=== PATIENT | male | born 1970 | race Caucasian/White ===

== ENCOUNTER → 2020-08-23 15:41 | Outpatient (BNVA) | payer OTHER, SELFPAY | PROVIDERS: PCP Internal Medicine; Visit Provider Urology ==

== ENCOUNTER 2020-11-08 11:36 | Outpatient (REF) | payer BC, SELFPAY ==
--- NOTE | ~2020-11-08 | XR_ITS ---
EXAMINATION: CHEST AND LEFT SHOULDER X-RAY CLINICAL INFORMATION: Chest and left shoulder pain COMPARISON: None TECHNIQUE: 2 views of the chest and 4 views of the left shoulder FINDINGS: Chest: The cardiac and mediastinal contours are normal. The lungs are clear. There is no pleural effusion or pneumothorax. There is mild curvature of the midthoracic spine to the right and degenerative change. Left shoulder: Bone alignment is normal. No fracture or dislocation is seen. The glenohumeral joint is normal. There is mild arthritis at the acromioclavicular joint. Soft tissues are unremarkable. XR/XR chest 2V IMPRESSION: Chest x-ray: Unremarkable exam Left shoulder: Mild arthritis at the acromioclavicular joint.
--- NOTE | ~2020-11-08 | XR_ITS ---
EXAMINATION: CHEST AND LEFT SHOULDER X-RAY CLINICAL INFORMATION: Chest and left shoulder pain COMPARISON: None TECHNIQUE: 2 views of the chest and 4 views of the left shoulder FINDINGS: Chest: The cardiac and mediastinal contours are normal. The lungs are clear. There is no pleural effusion or pneumothorax. There is mild curvature of the midthoracic spine to the right and degenerative change. Left shoulder: Bone alignment is normal. No fracture or dislocation is seen. The glenohumeral joint is normal. There is mild arthritis at the acromioclavicular joint. Soft tissues are unremarkable. XR/XR shoulder LT min 2V IMPRESSION: Chest x-ray: Unremarkable exam Left shoulder: Mild arthritis at the acromioclavicular joint.
[2020-11-08 15:02] LABS: Alanine Aminotransferase 22 U/L (0-40); Albumin Level 4.7 g/dL (3.5-5.0); Alkaline Phosphatase 74 U/L (39-117); Anion Gap 14 (12-20); Aspartate Amino Transferase 22 U/L (5-37); Bilirubin Total 0.7 mg/dL (0.0-1.0); Blood Urea Nitrogen 12 mg/dL (9-16); Calcium 9.3 mg/dL (8.4-10.2); Carbon Dioxide 30 mmol/L (22-29); Chloride 103 mmol/L (96-108); Cholesterol 199 mg/dL; Estimated Glomerular Filt Rate > 60; Glucose Fasting 85 mg/dL (60-99); HDL Cholesterol 69 mg/dL; LDL Cholesterol Calculated 111 mg/dl; Potassium 4.1 mmol/L (3.3-5.1); Sodium 143 mmol/L (135-145); Total Protein 7.9 g/dL (6.5-8.0); Triglycerides 99 mg/dL
== END 2020-11-08 11:37 | disposition home or self-care (01) ==
LOC: HO.HMGCLDS 11:36
PROVIDERS: PCP Internal Medicine; Visit Provider Internal Medicine
DX: Z00.00 Encounter for general adult medical examination without abnormal findings (principal); R07.9 Chest pain, unspecified; M25.512 Pain in left shoulder
CPT/HCPCS: 36415; 71046; 73030; 80053; 80061

== ENCOUNTER → 2020-11-11 07:57 | Outpatient (REF) | payer BC, SELFPAY ==
--- NOTE | 2020-11-11 08:01 | CA_ITS ---
Acquisition Time: 2020-11-11 08:29:56 Total Exercise Time: 00:08:01 Test Indications: Chest Pain Medications: SEE CHART Protocol: RICK Max HR: 155 BPM 90% of Pred: 172 BPM Max BP: 146/076 mmHG Max Work Load: 10.1 METS Exercise stress test using Rick protocol total of 8 min 1 sec, METS 10.10, and TAPHR up to 91 %. Pt tolerated well. Chest pressure at the end of exercise. EKG with mild upsloping ST depressions, Given his sx, and EKG tracings we will request further testing. Normotensive response to exercise. Test reviewed with Dr. Lundberg called PCP and requested stress nuclear Referred By: Ana Luisa York Overread By: Leighann Angel NP
== END ==
LOC: HO.CARD 07:57
PROVIDERS: Visit Provider Internal Medicine
DX: Z00.00 Encounter for general adult medical examination without abnormal findings (principal); R07.9 Chest pain, unspecified
CPT/HCPCS: 93016; 93017; 93018

== ENCOUNTER → 2020-12-08 10:01 | Outpatient (REF) | payer BC, SELFPAY ==
--- NOTE | ~2020-12-08 | NM_ITS ---
EXERCISE MYOCARDIAL PERFUSION STUDY INDICATION: Heartburn, upper chest pain, assess for coronary disease and ischemia TECHNIQUE: The patient was brought in for an exercise perfusion study on 12/08/2020. Patient performed exercise as per Mian protocol and was injected 30 mCi of sestamibi once target heart rate was achieved. Images were obtained using the SPECT gamma camera interlaced with the gating device. Images were obtained in supine position. Resting perfusion study was performed on 12/09/2020. Patient was administered 30 mCi of sestamibi intravenously at rest. Images were then obtained in supine position. Total DLP 80mGy-cm. Images were processed with the software and compared side to side in short axis, horizontal long axis and vertical long axis views. FINDINGS: Raw images were reviewed. The stress perfusion study showed diminished tracer uptake along the basal to mid inferior wall. With CT attenuation correction, there is significant improvement suggesting diaphragmatic attenuation artifact. The gated study shows normal LV systolic function with calculated LVEF of 70%. LV cavity is normal in size. The gated study shows normal wall thickening and contraction of segments. Resting study shows diminished tracer uptake along the basal to mid inferior wall but with improvement during CT attenuation correction. Gating at rest reveals normal wall motion with ejection fraction at 66%. The findings are consistent with fixed basal to mid inferior perfusion defect, but with improvement during CT attenuation correction suggesting diaphragmatic artifact. NM/NM cardiolite stress test IMPRESSION: 1. Myocardial perfusion imaging study shows likely normal myocardial perfusion. No definitive evidence of any ischemia or infarction. 2. Gated LVEF is 70% during stress and 66% during rest. 3. Transient ischemic dilatation not present. EKG component of the test reported separately.
--- NOTE | 2020-12-08 10:05 | CA_ITS ---
Acquisition Time: 2020-12-08 10:04:28 Total Exercise Time: 00:09:23 Test Indications: CP Medications: SEE CHART Protocol: RICK Max HR: 153 BPM 88% of Pred: 172 BPM Max BP: 164/060 mmHG Max Work Load: 10.7 METS Exercise stress nuclear using Rick protocol, totall of 9 min 23 sec. METS 10.7 and TAPHR up to 88 %. Pt tolerated well, denies any anginal sx. EKG with no arrhythmias, mild upsloping ST depressions seen inferiorly and lateraly. Nuclear images to follow. Normotensive response to exercise. Test reviewed with Dr. Tadeo. Referred By: Ana Luisa York Overread By: Leighann Angel NP
== END ==
LOC: HO.CARD 10:01
PROVIDERS: Visit Provider Internal Medicine
DX: R94.30 Abnormal result of cardiovascular function study, unspecified (principal); R07.9 Chest pain, unspecified
CPT/HCPCS: 78452; 93016; 93017; 93018; A9500

== ENCOUNTER 2021-08-15 15:09 | Outpatient (REF) | payer BC, SELFPAY ==
--- NOTE | ~2021-08-15 | US_ITS ---
EXAMINATION: US SCROTUM CLINICAL INFORMATION: Spermatocele of epididymis, unspecified. COMPARISON: Scrotal ultrasound dated 04/11/2018. TECHNIQUE: A sonogram of the scrotum was performed assessing mcqueen-scale appearance and color Doppler flow. Spectral Doppler analysis of the arterial and venous flow were performed in the testes bilaterally. FINDINGS: RIGHT: Right testicle measures 4.6 x 2.3 x 3.1 cm, volume 17.1 mL. No focal testicular parenchymal lesions are visualized. Spectral Doppler analysis of the arterial and venous flow is normal in the right testis. Right epididymal head is normal in size. No right hydrocele or varicocele is seen. Right epididymal Doppler flow is normal. LEFT: Left testicle measures 4.7 x 2.3 x 2.9 cm, volume 16.2 mL. No focal testicular parenchymal lesions are visualized. Spectral Doppler analysis of the arterial and venous flow is normal in the left testis. Left epididymal head is normal in size. There are septated vs clustered small epididymal head cysts. No left varicocele is seen. There is a small left hydrocele. Left epididymal Doppler flow is normal. US/US scrotum IMPRESSION: 1. Septated versus clustered cysts left epididymis. 2. Small left hydrocele. 3. Both testes are unremarkable with normal Doppler flow.
== END 2021-08-15 15:10 | disposition home or self-care (01) ==
LOC: HO.US 15:09
PROVIDERS: PCP Internal Medicine; Visit Provider Urology
DX: N43.40 Spermatocele of epididymis, unspecified (principal)
CPT/HCPCS: 76870

== ENCOUNTER → 2021-08-24 11:24 | Outpatient (BNVA) | payer BC, SELFPAY | PROVIDERS: PCP Internal Medicine; Visit Provider Urology ==

== ENCOUNTER 2022-01-19 13:54 | Outpatient (AMB) | payer BC, SELFPAY ==
[2022-01-19 14:17] VITALS: BP 118/74; PULSE 77; O2SAT 96; BMI 26.4
--- NOTE | 2022-01-19 14:17 | MHC.PC.OV ---
Vital Signs 01/19/22 14:17 Height 5 ft 10 in Weight 184 lb BMI 26.4 BP 118/74 Blood Pressure Location Lt brachial Position Sitting Pulse 77 Pulse Source Pulse Oximeter Pulse Oximetry (%) 96 Oxygen Delivery Method Room Air Intake Visit Reasons: PE Intake Note: Pt is here today for PE. Allergies No Known Allergies Allergy (Verified 03/27/24 10:31) Medication List - Last Reconciled 01/19/22 by Ana Luisa York MD ascorbate calcium (vitamin C) 500 mg PO DAILY sildenafil 100 mg PO DAILY PRN 30 days Tobacco use date assessed: 01/19/22 HPI PE HPI Details Pt presents for PE. FOR[facility]LY [facility], [facility] Medical History Sciatica of left side Shoulder pain, left Chest pain DJD (degenerative joint disease) Surgical History History of appendectomy History of nasal surgery Family History Father Arrhythmia Mother No problems noted. Social History Housing: House Are you a primary health care sanitary technician to a significant other at home: No Do you presently have visiting nurse or other home services: No Alcohol intake: never Patient Tobacco Use Status: Never used Tobacco e-Cigarette/Vaping Use: Never Used service: Yes Current occupational status: employed Cognitive needs: No Hearing needs: No Vision needs: No Questionnaire PHQ-9 Over the last 2 weeks, how often have you been bothered by any of the following problems? 1. Little interest or pleasure in doing things: several days 2. Feeling down, depressed, or hopeless: not at all 3. Trouble falling or staying asleep, or sleeping too much: several days 4. Feeling tired or having little energy: several days 5. Poor appetite or overeating: not at all 6. Feeling bad about yourself - or that you are a failure or have let yourself or your family down: not at all 7. Trouble concentrating on things, such as reading the newspaper or watching television: not at all 8. Moving or speaking so slowly that other people could have noticed. Or the opposite - being so fidgety or restless that you have been moving around a lot more than usual: not at all 9. Thoughts that you would be better off or of hurting yourself in some way: not at all Total score: 3 Depression Screening Interpretation: Negative 14857 - PHQ-9 Billing: No Source: Developed by Drs. Raj Ferreira, Samantha Acosta, Allan Hansen and colleagues, with an educational robinson from [employer]. Thrive Questionnaire Date Thrive assessed: 01/19/22 I am a: Patient What is your living situation today?: I have a steady place to live Within the past 12 months, did the food you bought not last and you didn't have the money to get more?: Never true Within the past 12 months, did you worry whether your food would run out before you got money to buy more?: Never true Do you have trouble paying for medicines?: No Do you have trouble getting transportation to medical appointments?: No Do you have trouble paying your heating and electricity bill?: No Do you have trouble taking care of your child, family member or friend?: No Do you have trouble with day-to-day activities such as bathing, preparing meals, shopping, managing finances, etc.?: No Are you currently unemployed and looking for a job?: No Are you interested in more education?: No Currently or been in a relationship where the following occur: no concerns reported AUDIT C Alcohol Use Questionnaire (AUDIT-C) 1. How often do you have a drink containing alcohol?: 2-3 times a week 2. How many drinks containing alcohol do you have on a typical day when you are drinking?: 1 or 2 3. How often do you have six or more drinks on one occasion?: Never Total Score: 3 CARLA-7 AMB Questionnaire CARLA-7 Date CARLA - 7 assessed: 01/19/22 Feeling nervous, anxious, or on edge: 0 = Not at all Not being able to stop or control worryin = Not at all Worrying too much about different things: 1 = Several days Trouble relaxin = Not at all Being so restless that it is hard to sit still: 0 = Not at all Becoming easily annoyed or irritable: 1 = Several days Feeling afraid as if something awful might happen: 0 = Not at all Total CARLA-7 score (0-4 normal; 5-9 mild; 10-14 moderate; 15-21 severe): 2 Source: Developed by Drs. Raj Ferreira, Samantha Acosta, Allan Hansen and colleagues, with an educational robinson from [employer]. Review of Systems Const All systems reviewed & are unremarkable except as noted in HPI and below Reports no additional complaints Eyes Reports no additional complaints ENT Reports no additional complaints Card Reports no additional complaints Resp Reports no additional complaints GI Reports no additional complaints Reports no additional complaints Physical exam (Primary Care) Vital Signs: Last Vital Signs Pulse 77 01/19/22 14:17 BP 118/74 01/19/22 14:17 Pulse Ox 96 01/19/22 14:17 Oxygen Delivery Method Room Air 01/19/22 14:17 BMI result Body Mass Index 26.4 Tobacco/Smoking Status: Tobacco use Status Tobacco use date assessed 01/19/22 01/19/22 14:25 Patient Tobacco Use Status Never used Tobacco 01/19/22 14:25 e-Cigarette/Vaping Use Never Used 01/19/22 14:25 PHQ-9: PHQ-9 Score PHQ-9: Total score 3 01/19/22 14:48 Depression Screening Interpretation: Negative Thrive Assessment: Date of Thrive Assessment Date Thrive assessed 01/19/22 01/19/22 14:28 Currently or been in a relationship where the following occur: no concerns reported Const General: no acute distress HENMT Head: Yes normal to inspection Ears: hearing grossly normal bilaterally General nose exam: Normal external nose present Mouth: Normal oral and palatal mucosa present Throat: Yes posterior oropharynx normal Eyes General: appearance normal, both eyes and all related structures Neck Neck: Yes no lymphadenopathy and Yes supple Resp Effort & Inspection: normal respiratory effort Auscultation: clear to auscultation bilaterally Cardio Rhythm: regular rhythm Heart sounds: S1 normal heart sound present and S2 normal heart sound present GI Inspection: Yes normal to inspection Palpation (GI): Soft to palpation and No hepatosplenomegaly present Percussion: Yes normal to percussion Auscultation: normal bowel sounds Assessment and Plan Assessment & Plan (1) Annual physical exam: Code(s): Z00.00 - Encounter for general adult medical examination without abnormal findings Plan: Well-balanced diet regular physical activity discussed with the patient return for fasting blood work Orders: Orders Lipid Panel 01/19/22 Z00.00 - Encounter for general adult medical examination without abnormal findings Complete Blood Count Auto Diff 01/19/22 Z00.00 - Encounter for general adult medical examination without abnormal findings Comprehensive [place]. Panel Fast 01/19/22 Z00.00 - Encounter for general adult medical examination without abnormal findings UA w Microscopic 01/19/22 Z00.00 - Encounter for general adult medical examination without abnormal findings Referrals Gastroenterology Referral Z00.00 - Encounter for general adult medical examination without abnormal findings Coding Level of Care Code Est Pt Prev Care 40-64y(08883) Diagnoses Annual physical exam Z00.00
== END 2022-01-19 15:21 | disposition home or self-care (01) ==
LOC: HO.HMGC 13:54
PROVIDERS: PCP Internal Medicine; Visit Provider Internal Medicine
DX: Z00.00 Encounter for general adult medical examination without abnormal findings (principal)
CPT/HCPCS: 99499

== ENCOUNTER 2022-01-19 15:03 | Outpatient (REF) | payer BC, SELFPAY ==
[2022-01-19 16:31] LABS: MANUAL DIFF FLAG NO
[2022-01-19 16:38] LABS: Basophils Percent Auto 0.1 % (0-2); Eosinophils Absolute Auto 0.1 X10*3/uL (0.0-0.4); Eosinophils Percent Auto 1.2 % (0-4); Hematocrit 41.6 % (42.0-52.0); Hemoglobin 13.9 g/dl (14.0-18.0); Imm Gran Abs Auto 0.04 X10*3/uL (0.00-0.03); Imm Gran Pct Auto 0.4 % (0.0-0.4); Lymphocytes Absolute Auto 2.3 X10*3/uL (1.2-4.9); Lymphocytes Percent Auto 22.4 % (20-40); Mean Corpuscular HGB Conc 33.4 g/dl (31.0-36.0); Mean Corpuscular Hemoglobin 30.8 pg (27.0-33.0); Mean Platelet Volume 10.3 fL (9.4-12.4); Monocytes Absolute Auto 0.8 X10*3/uL (0.1-1.2); Monocytes Percent Auto 8.2 % (2-11); Neutrophils Absolute Auto 6.9 x10*3/uL (2.0-8.3); Neutrophils Percent Auto 67.7 % (45-73); Platelet Count 196 X10*3/uL (160-400); Red Blood Count 4.52 X10*6/uL (4.60-5.80); Red Cell Distribution Width 12.5 % (11.0-16.0); White Blood Count 10.1 X10*3/uL (4.8-10.8)
[2022-01-19 16:43] LABS: Appearance Urine CLEAR; Color Urine YELLOW; Glucose Urine UA NEG (NEG); Leukocyte Esterase Urine NEG (NEG); Nitrite Urine NEG (NEG); Specific Gravity - Urine <= 1.005 (1.005-1.025); Urine Blood NEG (NEG); Urine Ketones NEG (NEG); Urine Protein NEG (NEG-TRACE)
[2022-01-19 16:48] LABS: RBC Urine 0 /HPF (0); WBC Urine 0 /HPF (0-4)
[2022-01-19 17:25] LABS: Alanine Aminotransferase 16 U/L (0-40); Albumin Level 4.3 g/dL (3.5-5.0); Alkaline Phosphatase 82 U/L (39-117); Anion Gap 12 (12-20); Aspartate Amino Transferase 22 U/L (5-37); Bilirubin Total 0.9 mg/dL (0.0-1.0); Blood Urea Nitrogen 15 mg/dL (9-16); Calcium 8.9 mg/dL (8.4-10.2); Carbon Dioxide 26 mmol/L (22-29); Chloride 104 mmol/L (96-108); Cholesterol 170 mg/dL; Estimated Glomerular Filt Rate > 60; Glucose Fasting 78 mg/dL (60-99); HDL Cholesterol 64 mg/dL; LDL Cholesterol Calculated 94 mg/dl; Sodium 138 mmol/L (135-145); Total Protein 7.2 g/dL (6.5-8.0); Triglycerides 62 mg/dL
== END 2022-01-19 15:04 | disposition home or self-care (01) ==
LOC: HO.HMGCLDS 15:03
PROVIDERS: PCP Internal Medicine; Visit Provider Internal Medicine
DX: Z00.00 Encounter for general adult medical examination without abnormal findings (principal)
CPT/HCPCS: 36415; 80053; 80061; 81001; 85025

== ENCOUNTER 2022-02-23 14:50 | Outpatient (REF) | payer BC, SELFPAY ==
[2022-02-23 16:25] LABS: MANUAL DIFF FLAG NO
[2022-02-23 16:29] LABS: Basophils Percent Auto 0.3 % (0-2); Eosinophils Absolute Auto 0.1 X10*3/uL (0.0-0.4); Eosinophils Percent Auto 1.8 % (0-4); Hematocrit 41.9 % (42.0-52.0); Hemoglobin 14.6 g/dl (14.0-18.0); Imm Gran Abs Auto 0.01 X10*3/uL (0.00-0.03); Imm Gran Pct Auto 0.2 % (0.0-0.4); Lymphocytes Percent Auto 48.5 % (20-40); Mean Corpuscular HGB Conc 34.8 g/dl (31.0-36.0); Mean Corpuscular Hemoglobin 31.9 pg (27.0-33.0); Mean Corpuscular Volume 91.5 fL (80.0-98.0); Mean Platelet Volume 10.6 fL (9.4-12.4); Monocytes Absolute Auto 0.7 X10*3/uL (0.1-1.2); Monocytes Percent Auto 10.5 % (2-11); Neutrophils Absolute Auto 2.4 x10*3/uL (2.0-8.3); Neutrophils Percent Auto 38.7 % (45-73); Platelet Count 185 X10*3/uL (160-400); Red Blood Count 4.58 X10*6/uL (4.60-5.80); Red Cell Distribution Width 12.5 % (11.0-16.0); White Blood Count 6.3 X10*3/uL (4.8-10.8)
[2022-02-23 16:41] LABS: Iron 139 mcg/dL (45-160); Percent Iron Saturation 43 % (15-50); Total Iron Binding Capacity 322 mcg/dL (228-428); Unsaturated Iron Binding 183 ug/dL
[2022-02-23 17:18] LABS: Folate 19.7 ng/mL (> or = 4.0); Vitamin B12 431 pg/mL (200-900)
== END 2022-02-23 14:51 | disposition home or self-care (01) ==
LOC: HO.HMGCLDS 14:50
PROVIDERS: PCP Internal Medicine; Visit Provider Internal Medicine
DX: D64.9 Anemia, unspecified (principal)
CPT/HCPCS: 36415; 82607; 82746; 83540; 85025

== ENCOUNTER → 2022-08-21 15:31 | Outpatient (BNVA) | payer BC, SELFPAY | PROVIDERS: PCP Internal Medicine; Visit Provider Urology | DX: F52.4 Premature ejaculation (principal) ==

== ENCOUNTER 2022-09-10 07:19 | Day surgery (SDC) | payer BC, SELFPAY ==
[2022-09-03 16:15] VITALS: BMI 27.3
[2022-09-10 07:57] VITALS: BP 120/77; PULSE 65; RESP 18; TEMP 36.6; O2SAT 97; BMI 28.0
--- NOTE | 2022-09-10 08:07 | HO.ANESPROP2 ---
HPI - Anesthesia Eval Consult details Narrative: Colonoscopy PMFSH Active Problems Active Problems: All Active Problems (Updated 09/03/22 @ 16:15 by Shalini Dover RN) Spermatocele of epididymis (Acute) Premature ejaculation (Acute) Anemia (Acute) Shoulder pain, left (Acute) Annual physical exam (Acute) Chest pain (Acute) Past Medical History Medical History (Updated 09/03/22 @ 16:15 by Shalini Dover RN) Chest pain DJD (degenerative joint disease) Sciatica of left side Shoulder pain, left Family History Family History Father No problems noted. Mother No problems noted. Family history of problems with anesthesia: No Surgical History Surgical History (Updated 09/03/22 @ 16:15 by Shalini Dover RN) History of appendectomy History of nasal surgery History of Problems with Anesthesia: No Social History Social History Housing: House Are you a primary auto care center manager to a significant other at home: No Do you presently have visiting nurse or other home services: No Alcohol intake: never Patient Tobacco Use Status: Never used Tobacco e-Cigarette/Vaping Use: Never Used Are you DNR?: No Advance Directives: No Advance Directives Information Provided: Yes Advance Directives on File: No Recently lost weight without trying: No Nutrition Risks: No Nutritional Risk Current occupational status: employed Cognitive needs: No Hearing needs: No Vision needs: No Meds Allergies Allergy/AdvReac Type Severity Reaction Status Date / Time No Known Allergies Allergy Verified 09/03/22 16:01 Home Medications Medication Instructions Recorded Confirmed Last Taken Type ascorbate calcium (vitamin C) 500 500 mg PO DAILY 01/19/22 09/03/22 Unknown History mg tablet Exam Exam Date and Time: September 10, 2022 0807 Height,Weight and Vital Signs: Height 5 ft 9 in Weight 86.183 kg Last Vital Signs Temp 97.9 F 09/10/22 07:57 Pulse 65 09/10/22 07:57 Resp 18 09/10/22 07:57 BP 120/77 09/10/22 07:57 Pulse Ox 97 09/10/22 07:57 O2 Del Method 09/10/22 07:57 Airway Mallampati Class: II TM Dist: >3cm Neck ROM: Full Loose/Missing/Broken Teeth: No Heart: rrr Lungs: cta Assessment and Plan Final Anesthetic Review Family History of Problems with Anesthesia: No History of Problems with Anesthesia: No NPO: Yes ASA Class: II Final Preanesthetic Review: No Changes in Pt Med Stat, Meds/Allgs Chart Reviewed, Consent Obtained/Reviewed and Anes Risks/Benef Reviewed Patient Risk: Low Procedure Risk: Low Anesthetic Plan Anesthetic Plan: MAC: Disposition: Standard PACU
[2022-09-10] MEDS: Lactated Ringers 500 ML 20 ML IVCONT (08:19)
[2022-09-10] MEDS: Lactated Ringers 500 ML 50 ML IV (08:19)
--- NOTE | 2022-09-10 08:42 | MHC.SHP ---
Pre-Procedural Eval Section A Date of Service: 09/10/22 Section B Chief Complaint: screening Details of Present Illness: 52 y.o M here for index colo. Relevant Family History (Specify if Yes): No Relevant Social History: None Present Medications: see Short Stay Collaborative assessment Medical History: Significant History (DJD (degenerative joint disease) Sciatica of left side) Allergies: Allergies Allergy/AdvReac Type Severity Reaction Status Date / Time No Known Allergies Allergy Verified 09/03/22 16:01 Review of Systems Review of Systems Comment: 10 point ROS negative except as above Exam Exam Comment: Gen appear: No acute distress, well nourished HEENT: no icterus Chest: No overt resp distress Abd: soft, nontender, nondistended Psych: Stable affect, answering questions appropriately Neuro: A/Ox3 noted to move all extremities spontaneously Ext: no peripheral edema Plan Diagnosis/Plan: Unchanged I have reviewed the history and physical and performed a pertinent physical examination on my patient. No changes have occurred unless specified. Time Spent With Patient Time: Total time managing care of this patient today ____ minutes.
--- NOTE | 2022-09-10 08:45 | P.OP_ITS ---
Operative Note Operative Note Date of Service: 09/10/22 Narrative: Procedure: Colonoscopy Indication: Screening Endoscopist: Shellie Thomas MD Anesthesia Provider: Dr Ofelia Graham Anesthesia type: MAC Instrument: Olympus [id number]-H190L Consent: Indication, risks vs benefits, and alternatives were discussed with the patient who gave written informed consent to proceed. EKG, pulse, pulse oximetry and blood pressure were monitored throughout the procedure. Please see anesthesia flowsheet. Procedure: The patient was brought to the procedure room and placed in the left lateral decubitus position. IV medications were administered by the anesthesia provider in attendance. A digital rectal exam was performed which was normal. The colonoscope was then inserted through the anus and advanced through the colon to the cecum at 85 cm,and terminal ileum. Mucosa was carefully examined under high definition white light as the instrument was slowly withdrawn in a retrograde panoramic fashion. Retroflexion was performed in ascending colon and rectum. The procedure was not difficult. There were no immediate obvious complications. The quality of the prep was BBPS: 2+3+3 = adequate Withdrawal time 10 minutes. Limitations: No limitations. Findings: Mucosa: Normal to cecum and terminal ileum. Protruding lesions: * Small internal hemorrhoids without stigmata of recent bleeding. Impression: 1. Normal colon and terminal ileum mucosa 2. Internal hemorrhoids Recommendations: - Repeat colonoscopy in 10 years for CRC screening.
[2022-09-10 09:14] VITALS: BP 106/59; PULSE 63; RESP 16; TEMP 36.2; O2SAT 96
[2022-09-10 09:30] VITALS: BP 113/69; PULSE 64; RESP 16; O2SAT 98
[2022-09-10 09:45] VITALS: BP 120/75; PULSE 68; RESP 16; TEMP 36.3; O2SAT 99
== END 2022-09-10 10:44 ==
LOC: HO.SSS 07:19
PROVIDERS: PCP Internal Medicine; Visit Provider Internal Medicine
PROC: 0DJD8ZZ Inspection of Lower Intestinal Tract, Via Natural or Artificial Opening Endoscopic (ICD-10-PCS; CPT 45378; principal; 2022-09-10 08:30)
DX: Z12.11 Encounter for screening for malignant neoplasm of colon (principal); K64.8 Other hemorrhoids; K58.2 Mixed irritable bowel syndrome; D64.9 Anemia, unspecified; R07.9 Chest pain, unspecified; N43.40 Spermatocele of epididymis, unspecified; Z90.49 Acquired absence of other specified parts of digestive tract; Z79.899 Other long term (current) drug therapy
CPT/HCPCS: 45378

== ENCOUNTER 2022-09-24 13:54 | Outpatient (REF) | payer BC, SELFPAY ==
[2022-09-24 17:16] LABS: Prostate Specific Antigen 0.59 ng/mL (<0.05-4.0)
== END 2022-09-24 13:55 | disposition home or self-care (01) ==
LOC: HO.HMGCLDS 13:54
PROVIDERS: PCP Internal Medicine; Visit Provider Urology
DX: Z00.00 Encounter for general adult medical examination without abnormal findings (principal); Z12.5 Encounter for screening for malignant neoplasm of prostate; E11.69 Type 2 diabetes mellitus with other specified complication; N52.1 Erectile dysfunction due to diseases classified elsewhere
CPT/HCPCS: 36415; 84153

== ENCOUNTER → 2022-11-21 15:06 | Outpatient (BNVA) | payer BC, SELFPAY | PROVIDERS: PCP Internal Medicine; Visit Provider Urology | DX: Z13.89 Encounter for screening for other disorder (principal) ==

== ENCOUNTER 2024-01-10 10:20 | Outpatient (AMB) | payer BC, SELFPAY ==
--- NOTE | 2024-01-10 10:37 | A.OFFVIS_ITS ---
Intake Visit Reasons: 1y follow up(Confirmed) Intake Note: Patient is Present for Follow Up Urology Medication: Patient is no longer taking Tadalafil Antibiotic Allergies:None Blood Thinners:none Allergies No Known Allergies Allergy (Verified 10/17/22 12:51) HPI Comments Details: Tito GARY is a very pleasant [place] verde[place] male. He is a patient of Dr York. He is seen for the following urologic conditions - right spermatocele - premature ejaculation Yearly follow-up Did not have good response using daily tadalafil for premature ejaculation no longer taking Did have effective clinical response using [place] duration lidocaine jelly and new lidocaine spray Would like to continue with the applied lidocaine jelly Will follow-up in 12 months Scrotal exam small epididymal cyst right side, left side small calcification PSA 09/27 0.6 Premature ejaculation Reports this has been present for many years Obtains normal erection Reports short time interval to climax after penetration Testicular/Scotal orchalgia-swelling: Has not increased in significance prior year Primary complaint of right, testicle(s), swelling. Imaging includes prior testicle US normal. Based on imaging and exam diagnosis is most consistent with right , a spermatocele. Prior therapy(ies) include no prior therapy. FOR[facility]LY [facility] Medical History Sciatica of left side Shoulder pain, left Chest pain DJD (degenerative joint disease) Surgical History History of appendectomy History of nasal surgery Family History Father Arrhythmia Mother No problems noted. Social History Housing: House Are you a primary farm or ranch animal caretaker to a significant other at home: No Do you presently have visiting nurse or other home services: No Alcohol intake: never Patient Tobacco Use Status: Never used Tobacco e-Cigarette/Vaping Use: Never Used Current occupational status: employed Cognitive needs: No Hearing needs: No Vision needs: No Review of Systems Const Denies chills and Denies fever(s) Card Reports no additional complaints and Denies syncope Resp Denies cough GI Denies abdominal pain and Denies heartburn Reports as per HPI and Denies change in libido Neuro Denies syncope Psych Denies change in libido Endo Denies change in libido Physical Exam Const General: cooperative, healthy appearing, comfortable and no acute distress Orientation/consciousness: patient oriented x3 HEENT Face and sinus: Yes normal facial exam Mouth: moist mucous membranes Neck Neck: Yes normal visual inspection, Yes full ROM and Yes trachea midline Chest Chest palpation & inspection: normal inspection of the chest Resp Effort & Inspection: normal respiratory effort, able to speak in complete sentences and no respiratory distress GI Inspection: Yes normal to inspection Back/Spine/Pelvis Cervical Spine: normal cervical lordosis Thoracic/Lumbar Spine: thoracic and lumbar spine normal to inspection Skin General skin exam: no rashes or lesions noted Neuro General: patient oriented x3, gait normal, tone normal and moves all extremities Extrem General: Yes normal to inspection and Yes capillary refill normal Assessment & Plan Assessment & Plan (1) Spermatocele of epididymis: Code(s): N43.40 - Spermatocele of epididymis, unspecified Category: Medical (2) Premature ejaculation: Code(s): F52.4 - Premature ejaculation Category: Medical Plan Twelve month follow-up PSA Orders: Orders Prostate Specific Antigen 364 Days F52.4 - Premature ejaculation Medications: Discontinued tadalafil Discontinued Reason: Doctor's Order 5 mg PO DAILY 90 days 90 tabs 1RF premature ejcultin F52.4 - Premature ejaculation Patient Instructions: Imaging studies, laboratory and physical exam results were discussed and reviewed in detail. No major barriers to patient understanding were identified. An opportunity to ask questions regarding the treatment plan was provided. All questions were answered. The patient expressed understanding and agreement with the above treatment plan. The patient is aware they should contact our office by phone for worsening of their current condition or the appearance of new urologic symptoms. Compliance is encouraged with any medications and followup testing that is ordered. It is a privilege to participate in the urologic care of your patient. If you have any questions or concerns regarding treatment for the above conditions, or other urologic issues, please do not hesitate to contact me. The office telephone contact is [phone]. This note is constructed using voice recognition software. While every effort has been made to ensure accuracy care companion errors may have been included. Yours sincerely, Dr Ghassan Contreras MD, [facility] - Urology Providers of Expert, Compassionate Care for the Genitourinary System Coding Level of Care Code Est Pt Level 4 (43975) Diagnoses Spermatocele of epididymis N43.40 Premature ejaculation F52.4
== END 2024-01-10 11:28 | disposition home or self-care (01) ==
PROVIDERS: Visit Provider Urology
DX: N43.40 Spermatocele of epididymis, unspecified (principal); F52.4 Premature ejaculation
CPT/HCPCS: 99213

== ENCOUNTER → 2024-01-10 10:20 | Outpatient (BNVA) | payer BC, SELFPAY | PROVIDERS: Visit Provider Urology ==

== ENCOUNTER 2024-03-27 10:21 | Outpatient (AMB) | payer BC, SELFPAY ==
--- NOTE | 2024-03-27 10:24 | A.OFFPC_ITS ---
Vital Signs 03/27/24 10:28 Height 5 ft 9 in Weight 192 lb BMI 28.4 BP 128/86 Blood Pressure Location Lt brachial Position Sitting Pulse 65 Pulse Source Pulse Oximeter Pulse Oximetry (%) 97 Oxygen Delivery Method Room Air Intake Visit Reasons: SwellingOnRightBreast Intake Note: Pt is here today for a PE. Allergies No Known Allergies Allergy (Verified 03/27/24 10:31) Medication List - Last Reconciled 03/27/24 by Ana Luisa York MD ascorbate calcium (vitamin C) 500 mg PO DAILY Tobacco use date assessed: 03/27/24 Dental Screening Dental Screen Date: 03/27/24 Did you have a dental visit in the last 12 months?: Yes Did you have a dental problem in the last 6 months where you did not have access to dental care?: No Was dental information given to patient?: Patient has dentist HPI SwellingOnRightBreast HPI Details Pt presents for PE. Patient noticed a fullness in the left axillary region for 3 weeks after he had a rash which resolved. Patient denies fever or chills. [facility] Medical History (Updated 03/27/24 @ 10:59 by Ana Luisa York MD) Sciatica of left side Shoulder pain, left Chest pain DJD (degenerative joint disease) Surgical History (Updated 03/27/24 @ 11:11 by Ana Luisa York MD) History of appendectomy History of nasal surgery Family History Father Arrhythmia Mother No problems noted. Social History Housing: House Are you a primary early breastfeeding care specialist to a significant other at home: No Do you presently have visiting nurse or other home services: No Alcohol intake: never Patient Tobacco Use Status: Never used Tobacco e-Cigarette/Vaping Use: Never Used service: Yes Current occupational status: employed Cognitive needs: No Hearing needs: No Vision needs: No Questionnaire PHQ-9 Over the last 2 weeks, how often have you been bothered by any of the following problems? 1. Little interest or pleasure in doing things: several days 2. Feeling down, depressed, or hopeless: not at all 3. Trouble falling or staying asleep, or sleeping too much: several days 4. Feeling tired or having little energy: several days 5. Poor appetite or overeating: not at all 6. Feeling bad about yourself - or that you are a failure or have let yourself or your family down: not at all 7. Trouble concentrating on things, such as reading the newspaper or watching television: not at all 8. Moving or speaking so slowly that other people could have noticed. Or the opposite - being so fidgety or restless that you have been moving around a lot more than usual: not at all 9. Thoughts that you would be better off or of hurting yourself in some way: not at all Total score: 3 Depression Screening Interpretation: Negative Depression Screening Done: Yes 27870 - PHQ-9 Billing: Yes Source: Developed by Drs. Raj Ferreira, Samantha Acosta, Allan Hansen and colleagues, with an educational robinson from [employer]. Thrive Questionnaire Date Thrive assessed: 03/27/24 I am a: Patient What is your living situation today?: I have a steady place to live Within the past 12 months, did the food you bought not last and you didn't have the money to get more?: Never true Within the past 12 months, did you worry whether your food would run out before you got money to buy more?: I choose not to answer this question Do you have trouble paying for medicines?: No Do you have trouble getting transportation to medical appointments?: No Do you have trouble paying your heating and electricity bill?: No Do you have trouble taking care of your child, family member or friend?: No Do you have trouble with day-to-day activities such as bathing, preparing meals, shopping, managing finances, etc.?: No Are you currently unemployed and looking for a job?: No Are you interested in more education?: Yes Please select the resources that you would like help with: None Currently or been in a relationship where the following occur: I choose not to answer THRIVE Score: 0 AUDIT C Alcohol Use Questionnaire (AUDIT-C) 1. How often do you have a drink containing alcohol?: 2-3 times a week 2. How many drinks containing alcohol do you have on a typical day when you are drinking?: 3 or 4 3. How often do you have six or more drinks on one occasion?: Monthly Total Score: 6 CARLA-7 AMB Questionnaire CARLA-7 Date CARLA - 7 assessed: 03/27/24 Feeling nervous, anxious, or on edge: 0 = Not at all Not being able to stop or control worryin = Not at all Worrying too much about different things: 1 = Several days Trouble relaxin = Not at all Being so restless that it is hard to sit still: 0 = Not at all Becoming easily annoyed or irritable: 1 = Several days Feeling afraid as if something awful might happen: 0 = Not at all Total CARLA-7 score (0-4 normal; 5-9 mild; 10-14 moderate; 15-21 severe): 2 Source: Developed by Drs. Raj Ferreira, Samantha Acosta, Allan Hansen and colleagues, with an educational robinson from [employer]. CARLA-7 Assessment Billing CARLA-7 Assessment Tool: CARLA-7 Assessment 20497 Review of Systems Const All systems reviewed & are unremarkable except as noted in HPI and below Eyes Reports no additional complaints ENT Reports no additional complaints Card Reports no additional complaints Resp Reports no additional complaints GI Reports no additional complaints Reports no additional complaints Physical exam (Primary Care) Vital Signs: Last Vital Signs Pulse 65 03/27/24 10:28 BP 128/86 03/27/24 10:28 Pulse Ox 97 03/27/24 10:28 Oxygen Delivery Method Room Air 03/27/24 10:28 BMI result Body Mass Index 28.4 Tobacco/Smoking Status: Tobacco use Status Tobacco use date assessed 03/27/24 03/27/24 10:35 Patient Tobacco Use Status Never used Tobacco 03/27/24 10:35 e-Cigarette/Vaping Use Never Used 03/27/24 10:24 PHQ-9: PHQ-9 Score PHQ-9: Total score 3 03/27/24 10:26 Depression Screening Interpretation: Negative Thrive Assessment: Date of Thrive Assessment Date Thrive assessed 03/27/24 03/27/24 10:26 Currently or been in a relationship where the following occur: I choose not to answer Const General: no acute distress HENMT General nose exam: Normal external nose present Face and sinus: Yes normal facial exam Mouth: Normal oral and palatal mucosa present Throat: Yes posterior oropharynx normal Eyes General: appearance normal, both eyes and all related structures Neck Neck: Yes supple Resp Effort & Inspection: normal respiratory effort Auscultation: clear to auscultation bilaterally Cardio Rhythm: regular rhythm Heart sounds: S1 normal heart sound present and S2 normal heart sound present GI Inspection: Yes normal to inspection Palpation (GI): Soft to palpation Percussion: Yes normal to percussion Auscultation: normal bowel sounds Extrem Other: Left axillary region slight asymmetry in the soft tissue no adenopathy palpable. Both breasts no masses or nipple change Assessment and Plan Assessment & Plan (1) Annual physical exam: Code(s): Z00.00 - Encounter for general adult medical examination without abnormal findings Plan: Well-balanced diet regular physical activity discussed with the patient. He has a negative colonoscopy in 09/24/2022 (2) Hx of colonoscopy: Comment: 09/2022 negative, Dr. Thomas Code(s): Z98.890 - Other specified postprocedural states (3) Left axillary swelling: Code(s): M79.89 - Other specified soft tissue disorders Plan: Obtain ultrasound of soft tissue to evaluate Orders: Orders Lipid Panel Today D64.9 - Anemia, unspecified, M79.89 - Other specified soft tissue disorders, Z00.00 - Encounter for general adult medical examination without abnormal findings PT Evaluation and Treatment Today D64.9 - Anemia, unspecified, M79.89 - Other specified soft tissue disorders, Z00.00 - Encounter for general adult medical examination without abnormal findings US extremity nonvascular Today M79.89 - Other specified soft tissue disorders Comprehensive [place]. Panel Fast Today D64.9 - Anemia, unspecified, M79.89 - Other specified soft tissue disorders, Z00.00 - Encounter for general adult medical examination without abnormal findings Complete Blood Count Auto Diff Today D64.9 - Anemia, unspecified, M79.89 - Other specified soft tissue disorders, Z00.00 - Encounter for general adult medical examination without abnormal findings UA w Microscopic Today D64.9 - Anemia, unspecified, M79.89 - Other specified soft tissue disorders, Z00.00 - Encounter for general adult medical examination without abnormal findings Coding Level of Care Code Est Pt Prev Care 40-64y(36110) Diagnoses Annual physical exam Z00.00 Hx of colonoscopy Z98.890 Left axillary swelling M79.89 Additional Codes CARLA-7 Assessment Billing - CARLA-7 Assessment Tool: CARLA-7 Assessment 66689 ([id number])
[2024-03-27 10:28] VITALS: BP 128/86; PULSE 65; O2SAT 97; BMI 28.4
== END 2024-03-27 11:18 | disposition home or self-care (01) ==
PROVIDERS: PCP Internal Medicine; Visit Provider Internal Medicine
DX: Z00.00 Encounter for general adult medical examination without abnormal findings (principal); Z98.890 Other specified postprocedural states; M79.89 Other specified soft tissue disorders
CPT/HCPCS: 99396

== ENCOUNTER 2024-04-08 11:06 | Outpatient (REF) | payer BC, SELFPAY ==
--- NOTE | ~2024-04-08 | US_ITS ---
EXAMINATION: ULTRASOUND LEFT AXILLA CLINICAL INFORMATION: Left axillary mass and swelling. COMPARISON: None available. TECHNIQUE: High frequency linear ultrasound transducer was used to examine the area of clinical concern. FINDINGS: The only abnormality seen in the area of clinical concern is a 3.1 x 1.1 x 1.5 cm lymph node with a large fatty clifton. An abnormal mass or fluid collection is not seen. US/US extremity nonvascular IMPRESSION: The area of clinical concern corresponds to a normal-appearing lymph node. Electronically signed by: Colin Landry MD 04/22/2024 12:20 AM EDT
[2024-04-08 13:12] LABS: Appearance Urine Clear; Color Urine Yellow; Glucose Urine UA Negative (Negative); Leukocyte Esterase Urine Negative (Negative); Nitrite Urine Negative (Negative); Specific Gravity - Urine <= 1.005 (1.005-1.025); Urine Blood Negative (Negative); Urine Ketones Negative (Negative); Urine Protein Negative (Neg-Trace)
[2024-04-08 13:15] LABS: Bacteria Urine None Seen (None Seen); Hyaline Casts Urine 0-2 /LPF (0-2); RBC Urine 0-2 /HPF (0-2); Squamous Epithelial Cell Urine 0-2 /HPF (0-2); WBC Urine 0-5 /HPF (0-5)
[2024-04-08 13:24] LABS: MANUAL DIFF FLAG NO
[2024-04-08 13:31] LABS: Basophils Percent Auto 0.4 % (0-2); Eosinophils Absolute Auto 0.1 X10*3/uL (0.0-0.4); Eosinophils Percent Auto 2.3 % (0-4); Hematocrit 41.9 % (42.0-52.0); Hemoglobin 14.4 g/dl (14.0-18.0); Imm Gran Abs Auto 0.01 X10*3/uL (0.00-0.03); Imm Gran Pct Auto 0.2 % (0.0-0.4); Lymphocytes Absolute Auto 2.5 X10*3/uL (1.2-4.9); Lymphocytes Percent Auto 47.4 % (20-40); Mean Corpuscular HGB Conc 34.4 g/dl (31.0-36.0); Mean Corpuscular Hemoglobin 31.7 pg (27.0-33.0); Mean Corpuscular Volume 92.3 fL (80.0-98.0); Mean Platelet Volume 10.4 fL (9.4-12.4); Monocytes Absolute Auto 0.6 X10*3/uL (0.1-1.2); Neutrophils Percent Auto 38.7 % (45-73); Platelet Count 188 X10*3/uL (160-400); Red Blood Count 4.54 X10*6/uL (4.60-5.80); Red Cell Distribution Width 12.3 % (11.0-16.0); White Blood Count 5.2 X10*3/uL (4.8-10.8)
[2024-04-08 13:46] LABS: Alanine Aminotransferase 20 U/L (0-40); Albumin Level 4.2 g/dL (3.5-5.0); Alkaline Phosphatase 68 U/L (39-117); Anion Gap 12 (12-20); Aspartate Amino Transferase 23 U/L (5-37); Bilirubin Total 0.6 mg/dL (0.0-1.0); Blood Urea Nitrogen 13 mg/dL (9-16); Calcium 9.4 mg/dL (8.4-10.2); Carbon Dioxide 27 mmol/L (22-29); Chloride 105 mmol/L (96-108); Cholesterol 182 mg/dL (<200); Estimated Glomerular Filt Rate > 60; Glucose Fasting 97 mg/dL (60-99); HDL Cholesterol 63 mg/dL (>40); LDL Cholesterol Calculated 104 mg/dL (<100); Potassium 4.3 mmol/L (3.3-5.1); Sodium 140 mmol/L (135-145); Total Protein 7.3 g/dL (6.5-8.0); Triglycerides 76 mg/dL (<150)
== END 2024-04-08 11:07 | disposition home or self-care (01) ==
LOC: HO.HMGCX 11:06
PROVIDERS: PCP Internal Medicine; Visit Provider Internal Medicine
DX: R60.0 Localized edema (principal); D64.9 Anemia, unspecified; Z13.6 Encounter for screening for cardiovascular disorders; Z00.00 Encounter for general adult medical examination without abnormal findings
CPT/HCPCS: 36415; 76882; 80053; 80061; 81001; 85025

== ENCOUNTER 2024-10-23 08:02 | Outpatient (REF) | payer BC, SELFPAY ==
--- NOTE | ~2024-10-23 | XR_ITS ---
EXAMINATION: XR CHEST 2 VIEWS HISTORY: R05.9 - Cough, unspecified COMPARISON: Comparison is made with the prior examination dated 11/08/2020. FINDINGS: PA and lateral views of the chest are submitted. The lungs are expanded and clear. There is no pleural effusion, pneumothorax, or pulmonary vascular congestion. The heart is normal in size. There is mild degenerative disc disease of the spine. XR/XR chest 2V IMPRESSION: No acute cardiopulmonary abnormality. Electronically signed by: Raj Nobles MD 10/23/2024 08:47 AM EDT
== END 2024-10-23 08:03 | disposition home or self-care (01) ==
LOC: HO.HMGCX 08:02
PROVIDERS: PCP Internal Medicine; Visit Provider Physician Assistant
DX: J18.9 Pneumonia, unspecified organism (principal)
CPT/HCPCS: 71046

== ENCOUNTER 2024-10-23 08:02 | Outpatient (AMB) | payer BC, SELFPAY ==
--- NOTE | 2024-10-23 08:06 | AM.OFFWIN_ITS ---
Intake Vital Signs 10/23/24 08:07 Weight 186 lb BP 130/80 Blood Pressure Location Lt brachial Position Sitting Pulse 79 Pulse Source Pulse Oximeter Temp 97.8 F Temp Source Oral Pulse Oximetry (%) 98 Oxygen Delivery Method Room Air Intake Visit Reasons: EP chest pain diff breathing, SOB, cough Intake Note: Patient here for chest tightness, SOB, cough that has been present for a couple of weeks on and off. Patient Tobacco Use Status: Never used Tobacco Allergies No Known Allergies Allergy (Verified 10/23/24 08:09) Do you need a note to return to daycare/school/sports/work: No HPI HPI Comments History of Present Illness Details History - The patient is a 54-year-old male pres enting with shortness of breath and dry cough. - He reported a severe cold or flu-like illness approximately three weeks ago, which included a significant fever and bedridden status for three days. - Residual symptoms since recovery inclu de a persistent dry cough and exertional shortness of breath that necessitates pausing during conversations and activities. - The patient has no prior diagnosis of asthma or Chronic Obstructive Pulmonary Disease (COPD) and denies any history of smoking or vaping. - He attempted treatment with a non-inha ler medication used by smokers to clear the lungs which he bought online but it isn't helping. - He has not experienced accompanying ea r or sinus pain and no recent fevers have occurred. - Right sided shoulder pain has been a r ecent complaint over the past few days, worse with deep breaths and movement. - He does not have any known allergies t o medications. Physical Exam General: Cooperative, healthy appearing, comfortable and no acute distress Orientation/consciousness: Patient oriented x3 Limitations: No limitations Head: Normal to inspection Ears: Hearing grossly normal bilaterally, external ears normal and TM's normal bilaterally Nose: Normal external nose present, Normal nares present and No nasal discharge present Face and sinus: Normal facial exam and Yes sinuses nontender Mouth: Normal oral and palatal mucosa present and moist mucous membranes Throat: Yes tonsils normal, Yes uvula midline. Posterior oropharynx erythema Eyes: Appearance normal, both eyes and all related structures Neck: Normal visual inspection Respiratory: Clear to auscultation bilaterally. Normal respiratory effort, able to speak in complete sentences, no respiratory distress, not tachypneic, no tripod positioning and no use of accessory muscles Cardiovascular: Regular rate and rhythm. Normal S1 and S2 Skin: No rashes or lesions noted Neuro: Patient oriented x3 Extremities: Normal to inspection and Yes no clubbing, cyanosis or edema, no TTP right posterior shoulder or right sided ribs [facility] Medical History Sciatica of left side Shoulder pain, left Chest pain DJD (degenerative joint disease) Surgical History History of appendectomy History of nasal surgery Family History Father Arrhythmia Mother No problems noted. Social History Housing: House Are you a primary nurse behavioral health care to a significant other at home: No Do you presently have visiting nurse or other home services: No Alcohol intake: never Patient Tobacco Use Status: Never used Tobacco e-Cigarette/Vaping Use: Never Used service: Yes Current occupational status: employed Cognitive needs: No Hearing needs: No Vision needs: No Review of Systems Const All systems reviewed & are unremarkable except as noted in HPI and below Physical Exam Vital Signs: Last Vital Signs Temp 97.8 F 10/23/24 08:07 Pulse 79 10/23/24 08:07 BP 130/80 10/23/24 08:07 Pulse Ox 98 10/23/24 08:07 Oxygen Delivery Method Room Air 10/23/24 08:07 Assessment & Plan Assessment & Plan (1) Atypical pneumonia: Code(s): J18.9 - Pneumonia, unspecified organism Plan: VSS, pt well appearing, PE unremarkable however with his right sided pleuritic pain, will get CXR to rule out any acute pathology. The patient will be treated with azithromycin to manage the presumed bacterial infection causing persistent respiratory symptoms. The therapy regimen includes a Z-Albino, with an initial loading dose followed by a course over several days. An inhaler is also prescribed to relieve respiratory spasms associated with shortness of breath and cough. Usage instructions have been provided, and the patient is encouraged to consult with the pharmacist for assistance with inhaler techniques. Current oxygen saturation levels and other physical exam findings support the likelihood of an uncomplicated course, so focused management on symptomatic and bacterial aspects will be pursued. The goal is to improve the patient's respiratory function and relieve discomfort. No medication allergies were reported, aligning with the prescribed treatment plan. Patient was informed and verbally consented to the use of an ambient scribe for clinic note documentation during this visit Orders: Orders XR chest 2V Today R05.9 - Cough, unspecified Medications: New albuterol sulfate 90 mcg/actuation 2 puffs inhalation Q6H PRN 8.5 grams 0RF s hortness of breath or wheezing or cough azithromycin For 250 mg dose pack: take 500 mg today (day 1), then 250 mg for 4 days (days 2-5) PO 6 tabs 0RF Coding Level of Care Code Est Pt Level 4 (98901) Diagnoses Atypical pneumonia J18.9
[2024-10-23 08:07] VITALS: BP 130/80; PULSE 79; TEMP 36.6; O2SAT 98
== END 2024-10-23 08:43 | disposition home or self-care (01) ==
PROVIDERS: PCP Internal Medicine; Visit Provider Physician Assistant
DX: J18.9 Pneumonia, unspecified organism (principal)

== ENCOUNTER → 2024-10-23 08:34 | Outpatient (BNV) | payer BC, SELFPAY | PROVIDERS: PCP Internal Medicine; Visit Provider Radiology Diagnostic Radiology | DX: R05.9 Cough, unspecified (principal) | CPT/HCPCS: 71046 ==

== ENCOUNTER 2025-01-06 12:02 | Outpatient (REF) | payer BC, SELFPAY ==
[2025-01-06 14:06] LABS: Prostate Specific Antigen 0.68 ng/mL (<0.05-4.0)
== END 2025-01-06 12:03 | disposition home or self-care (01) ==
LOC: HO.HMGCLDS 12:02
PROVIDERS: PCP Internal Medicine; Visit Provider Urology
DX: F52.4 Premature ejaculation (principal); Z12.5 Encounter for screening for malignant neoplasm of prostate
CPT/HCPCS: 36415; 84153

== ENCOUNTER 2025-01-08 13:17 | Outpatient (AMB) | payer BC, SELFPAY ==
--- NOTE | 2025-01-08 13:21 | MHC.OFFVIS ---
Intake Visit Reasons: 1y/PSA(labs?) Intake Note: Patient is present for 1 year Follow Up/PSA Urology Medication:None Antibiotic Allergies:None Blood Thinners:none Allergies No Known Allergies Allergy (Verified 01/08/25 13:24) HPI Comments Details: Tito GARY is a very pleasant tajik male. He is a patient of Dr York. He is seen for the following urologic conditions - right spermatocele - premature ejaculation Yearly follow-up Did have effective clinical response using [place] duration lidocaine jelly and new lidocaine spray Would like to continue with the applied lidocaine jelly Will follow-up in 12 months Scrotal exam small epididymal cyst right side stable can follow p.r.n. PSA 09/27 0.6, 01/27 0.7 Premature ejaculation Reports this has been present for many years Obtains normal erection Reports short time interval to climax after penetration Did not have good response using daily tadalafil for premature ejaculation no longer taking Testicular/Scotal orchalgia-swelling: Has not increased in significance prior year Primary complaint of right, testicle(s), swelling. Imaging includes prior testicle US normal. Based on imaging and exam diagnosis is most consistent with right , a spermatocele. Prior therapy(ies) include no prior therapy. [facility], [facility] Medical History Sciatica of left side Shoulder pain, left Chest pain DJD (degenerative joint disease) Surgical History History of appendectomy History of nasal surgery Family History Father Arrhythmia Mother No problems noted. Social History Housing: House Are you a primary critical care physician assistant to a significant other at home: No Do you presently have visiting nurse or other home services: No Alcohol intake: never Patient Tobacco Use Status: Never used Tobacco e-Cigarette/Vaping Use: Never Used service: Yes Current occupational status: employed Cognitive needs: No Hearing needs: No Vision needs: No Review of Systems Const Denies chills and Denies fever(s) Card Reports no additional complaints and Denies syncope Resp Denies cough GI Denies abdominal pain and Denies heartburn Reports as per HPI and Denies change in libido Neuro Denies syncope Psych Denies change in libido Endo Denies change in libido Physical Exam Const General: cooperative, healthy appearing, comfortable and no acute distress Orientation/consciousness: patient oriented x3 HEENT Face and sinus: Yes normal facial exam Mouth: moist mucous membranes Neck Neck: Yes normal visual inspection, Yes full ROM and Yes trachea midline Chest Chest palpation & inspection: normal inspection of the chest Resp Effort & Inspection: normal respiratory effort, able to speak in complete sentences and no respiratory distress GI Inspection: Yes normal to inspection Back/Spine/Pelvis Cervical Spine: normal cervical lordosis Thoracic/Lumbar Spine: thoracic and lumbar spine normal to inspection Skin General skin exam: no rashes or lesions noted Neuro General: patient oriented x3, gait normal, tone normal and moves all extremities Extrem General: Yes normal to inspection and Yes capillary refill normal Assessment & Plan Assessment & Plan (1) Spermatocele of epididymis: Code(s): N43.40 - Spermatocele of epididymis, unspecified Category: Medical (2) Premature ejaculation: Code(s): F52.4 - Premature ejaculation Category: Medical Plan 1. Scrotal Mass Scrotal mass to be observed. Ultrasound considered if symptoms change. PSA normal. Contact for re-evaluation if needed. Follow up with primary care discussed. Discussion Notes During the consultation, we reviewed the patient's scrotal mass, identified as a bump and its management. The patient expressed no current symptoms and felt fine. Discussion included the utility of an ultrasound for further assessment, though it was determined that it might not be necessary at this juncture. I reassured the patient that the PSA level is low at 0.7, suggesting no immediate prostate concerns. I advised the patient to monitor for any changes, and he can reach out if any issues arise. Routine PSA checks every two to three years through primary care were recommended. Patient Instructions - Monitor the scrotal bump for any changes. - Contact our office if you notice any new or worsening symptoms. - No need for ultrasound now unless symptoms develop. - Follow up with primary care for routine PSA checks every 2-3 years. - Continue to obtain soag-van-oyalgok products as needed. Patient Instructions: This note is constructed using voice recognition software. While every effort has been made to ensure accuracy sharples machine operator errors may have been included. Imaging studies, laboratory and physical exam results were discussed and reviewed in detail. No major barriers to patient understanding were identified. An opportunity to ask questions regarding the treatment plan was provided. All questions were answered. The patient expressed understanding and agreement with the above treatment plan. The patient is aware they should contact our office by phone for worsening of their current condition or the appearance of new urologic symptoms. Compliance is encouraged with any medications and followup testing that is ordered. It is a privilege to participate in the urologic care of your patient. If you have any questions or concerns regarding treatment for the above conditions, or other urologic issues, please do not hesitate to contact me. The office telephone contact is [phone]. Sincerely, Dr Ghassan Contreras MD, [facility] - Urology Compassionate Specialist Care for the Genitourinary System Coding Level of Care Code Est Pt Level 4 (10849) Diagnoses Spermatocele of epididymis N43.40 Premature ejaculation F52.4
== END 2025-01-08 13:35 | disposition home or self-care (01) ==
LOC: HO.HUSH 13:18
PROVIDERS: PCP Internal Medicine; Visit Provider Urology
DX: N43.40 Spermatocele of epididymis, unspecified (principal); F52.4 Premature ejaculation
CPT/HCPCS: 99214

== ENCOUNTER → 2025-01-08 13:17 | Outpatient (BNVA) | payer BC, SELFPAY | PROVIDERS: PCP Internal Medicine; Visit Provider Urology ==